=== PATIENT | male | born 1940 | race Caucasian/White ===

== ENCOUNTER 2021-09-14 14:07 | Emergency (ER) | payer MEDICARE, OTHER ==
[2021-09-14 15:23] VITALS: RESP 16
--- NOTE | 2021-09-14 18:12 | CT ---
EXAMINATION TYPE: CT brain lauren bryant con DATE OF EXAM: 09/14/2021 COMPARISON: None HISTORY: pain after fall CT DLP: 1380.4 mGycm Automated exposure control for dose reduction was used. There is cerebral cortical atrophy. There is no mass effect or midline shift. No sign of intracranial hemorrhage. Calvarium is intact. There is normal aeration of the mastoid sinuses. Skull base is inta ct. There is no evidence of cerebral edema. Cervical vertebra have normal alignment. There is degenerative disc space narrowing at C5-6 and C6-7 with mild spurring of the endplates. Posterior elements are intact. There is multilevel mild cervical hypertrophic facet arthropathy. Occipital bone is intact. Prevertebral soft tissues are intact. 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 No fracture seen. Cerebral atrophy. No acute intracranial abnormality.
--- NOTE | 2021-09-14 18:17 | XR ---
EXAMINATION TYPE: XR hand complete RT DATE OF EXAM: 09/14/2021 COMPARISON: NONE HISTORY: Fall. Pain TECHNIQUE: 3 views FINDINGS: Metacarpals are intact. There is some mild narrowing of the IP joint spaces. No erosions. N o subluxation. Carpal bones are intact. 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 No fracture seen.
--- NOTE | 2021-09-14 18:20 | XR ---
EXAMINATION TYPE: XR chest 2V DATE OF EXAM: 09/14/2021 COMPARISON: NONE HISTORY: Fall. Pain TECHNIQUE: 2 views FINDINGS: There is no heart failure nor confluent pneumonic infiltrate. Costophrenic angles are clear . Bony thorax is intact. IMPRESSION: No active cardiopulmonary disease.
--- NOTE | 2021-09-14 18:20 | XR ---
EXAMINATION TYPE: XR elbow complete RT DATE OF EXAM: 09/14/2021 COMPARISON: NONE HISTORY: Pain TECHNIQUE: 3 views FINDINGS: There is some spurring on the olecranon process of the ulna. No sign of elbow joint effusio n. No evidence of fracture nor dislocation. There is some fragmentation of the large olecranon proces s spur. IMPRESSION: Large olecranon process spur formation. No acute fracture seen.
--- NOTE | 2021-09-14 18:38 | ED ---
Fall HPI - General Chief Complaint: Fall Stated Complaint: Fell Time Seen by Provider: 09/14/21 17:21 Source: patient Mode of arrival: ambulatory - History of Present Illness Initial Comments: Patient is an 81 year old male who presents to the emergency department with a chief complaint of fall. Patient is adamant that he tripped on the curb and fell onto pavement as nursing facility. States he felt well before the fall. Denies blood thinner use. Patient landed on his right elbow and hit his forehead. The fall was witnessed by staff. Patient denies any pain. Denies diz ziness, lightheadedness, blurry vision, double vision, chest pain, shortness of breath, abdominal pain, and other concerns. - Related Data Allergies Allergy/AdvReac Type Severity Reaction Status Date / Time No Known Allergies Allergy Verified 09/14/21 15:23 Review of Systems ROS Statement: Those systems with pertinent positive or pertinent negative responses have been documented in the HPI. ROS Other: All systems not noted in ROS Statement are negative. Past Medical History Past Medical History: Hyperlipidemia, Hypertension, Prostate Disorder History of Any Multi-Drug Resistant Organisms: None Reported Past Surgical History: Prostate Surgery Past Psychological History: No Psychological Hx Reported Smoking Status: Current every day smoker Past Alcohol Use History: None Reported Past Drug Use History: None Reported General Exam Limitations: no limitations General appearance: alert, in no apparent distress Head exam: Present: normocephalic. Absent: normal inspection (abrasions over right forehead without significant swelling or ecchymosis ) Eye exam: Present: normal appearance, PERRL, EOMI. Absent: scleral icterus, conjunctival injection, periorbital swelling ENT exam: Present: TM's normal bilaterally Neck exam: Present: normal inspection, full ROM. Absent: tenderness Respiratory exam: Present: normal lung sounds bilaterally. Absent: respiratory distress, wheezes, rales, rhonchi, stridor Cardiovascular Exam: Present: regular rate, normal rhythm, normal heart sounds. Absent: systolic murmur, diastolic murmur, rubs, gallop, clicks GI/Abdominal exam: Present: soft, normal bowel sounds. Absent: distended, tenderness, guarding, rebound, rigid Extremities exam: Present: other (abrasions over right elbow, right hand, and right knee ) Neurological exam: Present: alert, oriented X3, CN II-XII intact Psychiatric exam: Present: normal affect, normal mood Skin exam: Present: warm, dry, intact, normal color. Absent: rash Course Vital Signs 09/14/21 09/14/21 15:18 18:59 Temperature 98.2 F 97.8 F Pulse Rate 68 84 Respiratory 16 16 Rate Blood Pressure 128/72 122/84 O2 Sat by Pulse 97 98 Oximetry Medical Decision Making - Medical Decision Making This is an 81-year-old male who presents after fall. Thorough history and examination were performed. Patient is well-appearing. Denies blood thinner use. Denies any pain or headache. There are abrasions over the right forehead without significant swelling or ecchymosis. There also abrasions to the right elbow, right hand, and right knee. Neurovascularly intact. Full range of motion. Range of motion does not cause pain. CT of the brain and C-spine is negative for acute process. Right elbow, right hand, and chest x-ray obtained. These are unremarkable. Results discussed with patient and nursing facility staff. Abrasions cleaned thoroughly. Patient will be discharged back to nursing facility and will return if he experiences new or concerning symptoms. Dr. Matamoros is my attending. Disposition Clinical Impression: Fall Disposition: HOME SELF-CARE Condition: Good Instructions (If sedation given, give patient instructions): Fall Prevention for Older Adults (ED) Additional Instructions: Please keep wounds clean and dry. Follow-up with primary care provider in one to 2 days. Return to the emergency department if you experience new, concerning, or worsening symptoms. Is patient prescribed a controlled substance at d/c from ED?: No Referrals: Nonstaff,Physician [Primary Care Provider] - 1-2 days Time of Disposition: 18:38
[2021-09-14 19:00] VITALS: BP 122/84; PULSE 84; TEMP 97.8
== END 2021-09-14 18:59 | disposition home or self-care (01) ==
LOC: EC 14:07
DX: S00.81XA Abrasion of other part of head, initial encounter (principal); S50.311A Abrasion of right elbow, initial encounter; F17.200 Nicotine dependence, unspecified, uncomplicated; I10 Essential (primary) hypertension; W10.1XXA Fall (on)(from) sidewalk curb, initial encounter; Y92.128 Other place in nursing home as the place of occurrence of the external cause
CPT/HCPCS: 70450; 71046; 72125; 99284